=== PATIENT | male | born 1970 | race Caucasian/White ===

== ENCOUNTER 2023-07-04 17:59 | Emergency (ER) | payer BC, SELFPAY ==
[2023-07-04 18:10] VITALS: BP 149/86; PULSE 120; RESP 20; TEMP 36.9; O2SAT 96; BMI 24.4
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
[2023-07-04] MEDS: LIDOCAINE 1 % PF 30 ML INJECTION (18:45)
[2023-07-04 19:03] VITALS: BP 135/78; PULSE 91; RESP 20; TEMP 36.8; O2SAT 96
[2023-07-04 19:25] VITALS: BP 135/78; PULSE 91; RESP 20; TEMP 36.8
== END 2023-07-04 19:25 | disposition home or self-care (01) ==
PROVIDERS: Emergency Provider Emergency Medicine Emergency Medical Services
DX: S01.511A Laceration without foreign body of lip, initial encounter (principal); V19.3XXA Pedal cyclist (driver) (passenger) injured in unspecified nontraffic accident, initial encounter
CPT/HCPCS: 12011; 99283; 99284; J2001